=== PATIENT | female | born 1950 | race Caucasian/White ===

== ENCOUNTER 2019-04-14 16:29 | Emergency (ER) | payer OTHER, MEDICARE ==
[~2019-04-14] VITALS: Ht 170.2 cm; Wt 63.6 kg
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
[2019-04-14 19:05] VITALS: BP 145/81
== END 2019-04-14 19:08 | disposition home or self-care (01) ==
LOC: ER 16:29
DX: S09.90XA Unspecified injury of head, initial encounter (principal); S20.211A Contusion of right front wall of thorax, initial encounter; S00.12XA Contusion of left eyelid and periocular area, initial encounter; S00.03XA Contusion of scalp, initial encounter; W22.8XXA Striking against or struck by other objects, initial encounter; Y93.89 Activity, other specified; Y92.410 Unspecified street and highway as the place of occurrence of the external cause; Y99.8 Other external cause status
CPT/HCPCS: 70450; 99284

== ENCOUNTER 2020-11-04 16:55 | Emergency (ER) | payer MEDICARE ==
[~2020-11-04] VITALS: Ht 170.2 cm; Wt 61.4 kg
[2020-11-04 16:58] VITALS: BP 165/80
== END 2020-11-04 18:05 | disposition home or self-care (01) ==
LOC: ER 16:56
DX: M79.671 Pain in right foot (principal)
CPT/HCPCS: 73630; 99283